=== PATIENT | female | born 1990 | race Caucasian/White ===

== ENCOUNTER 2022-12-12 10:30 | Outpatient (RCR) | payer OTHER, MEDICAID, SELFPAY ==
--- NOTE | 2022-11-07 17:00 | PT.OPPOC ---
Physical, Occupational & Speech Therapy At [facility] Current Diagnoses Gastro-esophageal reflux disease without esophagitis (11/07/22) Pelvic muscle wasting (11/07/22) Pelvic and perineal pain (11/07/22) Visit Care Team Role Provider Type TODD MartinezP- Family Provider Non-Staff Specialty: Nursing Address: [facility] [address], [place], [address] Email: Dinah Hawley DO Attending Provider Physician Primary Care Provider Referring Provider Specialty: Family Practice Address: [address] [place] [address], [place] [address], [place], [address] Email: [email or web address] Plan Of Care PT-OP-T Assessment and Plan Start: 11/07/22 10:32 Freq: Status: Active Protocol: Document 11/07/22 10:34 [facility] (Rec: 11/07/22 11:08 [facility] [id number][facility] Physical Therapy Assessment Rehab Potential Rehabilitation Potential Excellent Evaluation Complexity Number of Personal Factors/Comorbidities 0 Number of Body Systems Impaired 1-2 Clinical Presentation at Evaluation Stable Impairments Impairments Activity Tolerance,Functional Activities,Pain,Soft Tissue Mobility,Strength,Tone Goals 4 Impairment poor endurance of the pelvic floor Short Term Goal (STG) elida is able to sustain a pelvic floor contraction in supine x 10 seconds STG Duration 4 weeks Forward Air Controller/Air Officer Goal (LTG) elida is able to sustain a pelvic floor contraction in standing x 5 seconds LTG Duration 12 weeks 3 Impairment pelvic floor weakness with MMT of 2/5 for all lopez of the levator ani Short Term Goal (STG) Elida is able to improve pelvic floor strength by one muscle grade to 3/5 STG Duration 6 weeks Forward Air Controller/Air Officer Goal (LTG) Elida is able to improve pelvic floor strength to 4/5 or better and is able to relax her pelvic floor at rest on EMG biofeedback LTG Duration 12 weeks 2 Impairment tightness across the suprapubic fascia, transverse colon, and oblique musculature making diaphragmatic breathing difficult Short Term Goal (STG) pt is educated in proper breathing technique to expand her rib cage and abdominal wall with a inhale while relaxing the pelvic floor STG Duration 3 weeks Forward Air Controller/Air Officer Goal (LTG) Decreased tension and tightness of the abdominal wall and suprapubic fascia and Elida is able to tighten her pelvic floor without upper abdominal wall substitution LTG Duration 8 weeks 1 Impairment pt has history of pelvic pain and UTI's as well as urinary retention Short Term Goal (STG) pt is educated on relaxed awareness of the abdominal wall and voiding techniques to help improve her ability to fully empty her bladder STG Duration 4 weeks Penitentiary Goal (LTG) pt presents with improve ability to fully empty the bladder, decreased urgency and c/o UTI symptoms LTG Duration 12 weeks Assessment Summary Assessment Elida is a 32 year female referred to PT with c/o pelvic and perineal pain as well has history of UTI. Pt was scheduled to begin PT earlier however she was hospitalized Aug 21 this year after undergoing an endoscopy which caused a 2-3 cm esophageal perforation. She had to be flown to [facility] for stabilization and she ended up needing a J-tube for feeds. She reports she has had the jtube out for a month now. She did develop a venous thromboembolism related to her PICC line and is still on Lovenox for this. Elida notes her symptoms of UTI's have gotten better since this time. She wants to prevent future UTI's. Elida notes she holds chronic tension in her body and she is also dealing with motility issues. With manual examination of the abdominal wall pt has a band aide over the closing jtube placement. She presents with tightness of the abdominal fascia across the transverse colon and oblique musculature. elida has difficulty with diaphragmatic breathing and uses her upper chest to breath . There is restrictions across the suprapubic fascia and over the bladder. With pelvic floor examination Elida has weakness in all aspects of the levator ani. With palpation of the anterior left wall of the levator ani the uterus is felt with a small 1 degree prolapse and Elida notes this is a area of pain with intercourse. When attempting to contract her pelvic floor she pulls in from the obliques . She was given adductor assist exercise to assist with pelvic floor recruitment and this did help her to find her pelvic floor. She will be a good candidate for EMG biofeedback as well as NMES to help with pelvic floor dysfunction as well as retraining her upper abdominal wall to decrease downward tension on the pelvic floor. Physical Therapy Plan Frequency and Duration Frequency of Treatment 1x/Week Duration of treatment (weeks) 12 Plan of Care Start Date 11/07/22 Plan of Care End Date 01/30/23 Therapeutic Interventions Therapeutic Interventions Home Exercise Program,Manual Therapy,Neuromuscular Re- education,Patient/Caregiver Education,Self-Care/Home Management,Therapeutic Exercises Modalities Biofeedback Next Visit Focus/Plan Next Note Type Treatment Note Next Visit Plan begin stretches for pelvic pain next visit, work on diaphragmatic breathing in sidelying, work on MFR of the suprapubic fascia, trial quadruped position for abdominal relaxation Plan of Care Dates Plan of Care Start Date 11/07/22 Plan of Care End Date 01/30/23 Electronically Signed by: Yvrose Castro, PT 11/08/22 1015 If you are in agreement with this Plan of Care, please return a signed and dated copy. I have reviewed this Plan of Care and certify that the skilled therapy services above are required to meet the patient?s needs. Physician Signature Date Printed Name and Credentials Clinical Instructor Signature Printed Name and Credentials
--- NOTE | 2022-11-07 17:00 | PT.OIE ---
Current Diagnoses Gastro-esophageal reflux disease without esophagitis (11/07/22) Pelvic muscle wasting (11/07/22) Pelvic and perineal pain (11/07/22) Past Medical History (Last Updated 09/08/22 @ 12:56 by Dinah Hawley DO) Esophageal rupture GERD (gastroesophageal reflux disease) Jejunostomy tube present Pain in pelvis PMDD (premenstrual dysphoric disorder) Right ankle sprain Sore throat Temporomandibular joint disorder (TMJ) Thrombosis/embolism, venous Visit Care Team Role Provider Type Ashly Wynn, [facility] Family Provider Non-Staff Specialty: Nursing Address: [facility] [address], [place], [address] Email: Dinah Hawley DO Attending Provider Physician Primary Care Provider Referring Provider Specialty: Family Practice Address: [address] [place] [address], [address], [address] Email: [email or web address] Physical Therapy Initial Evaluation PT-OP-A Visit Information Start: 11/07/22 10:32 Freq: Status: Active Protocol: Document 11/07/22 10:34 [facility] (Rec: 11/07/22 11:08 [facility] [id number]) Out-Patient Physical Therapy Visit Information Visit Information Visit Type Initial Evaluation Visit Start Time 10:34 Visit Stop Time 11:15 Total Visit Minutes 41 Visit Number 1 Evaluation Information Evaluation Date 11/07/22 PT-OP-B Current Condition Start: 11/07/22 10:32 Freq: Status: Active Protocol: Document 11/07/22 10:34 [facility] (Rec: 11/07/22 11:08 [facility] [id number]) Current Condition History of Current Condition Onset Date 1 year ago Current Complaints c/o pelvic floor tightness, Chronic UTI's and feeling as if she has a UTI History of Current Condition year ago last spring she had a bad UTI and then symptoms started from there. pt was getting chronic UTI and UTI symptoms, she has having cramping and spasms, she holds a lot of tension in her body, she does have chronic motility issues SHe had a J tube in her stomach due to a perforated esophagus and she felt like she lost a lot of core strength. Her esophagus was perforated Aug 21. She has had her stent and J tube out for a month now. 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 In general she is tight everywhere, she experiences a lot of muscle pain and TMJ. She will be doing motility tests and she has to have mirilax to have a bowel movement every day. No c/o urinary leakage. Prior Treatments and Tests post void residual has shown bladder retention Treatment Goals Patient/Caregiver Goals treatment goals are to reduce tension and pain in the pelvic floor and reduce UTI symptoms PT-OP-F Manual Assessment Start: 11/07/22 10:32 Freq: Status: Active Protocol: Document 11/07/22 10:34 [facility] (Rec: 11/07/22 17:53 [facility] [id number]) Manual Assessments Soft Tissue Assessment Soft Tissue Mobility Assessment tightness of the suprapubic fascia and along the obliques, pt tends to hold herself in a guarded position of the obliques tightness of the fascia along the transverse colon Other Manual Assessments Other Manual Assessments difficulty with diaphragmatic breathing, pt tends to upper chest breath and it is difficult for her to relax her abdominal wall for diaphragmatic breathing and rib cage expansion PT-OP-I Pelvic Floor Start: 11/07/22 10:32 Freq: Status: Active Protocol: Document 11/07/22 10:34 [facility] (Rec: 11/07/22 17:52 [facility] [id number]) Pelvic Floor Assessment Pelvic Clock Pelvic Clock 12-3 Tenderness Pelvic Clock 3-6 Atrophy Pelvic Clock 6-9 Atrophy Pelvic Clock Other pt has decreased ability to contract her pelvic floor and tends to contract her upper abdominal wall when attempting to contract the pelvic floor, uterine prolapse felt more on the anterior left side and pt does report this region is a source of pain with intercourse for her. Contraction Ability Voluntary Contraction Weak Voluntary Relaxation Moderate Manual Muscle Testing Left 2 Manual Muscle Testing Right 2 Manual Muscle Testing Anterior 2 Manual Muscle Testing Posterior 2 Muscle Endurance (Seconds) 3 PT-OP-Q Treatments Start: 11/07/22 10:32 Freq: Status: Active Protocol: Document 11/07/22 10:34 [facility] (Rec: 11/07/22 17:50 [facility] [id number]) Therapeutic Exercises Supine Exercises diaphragmatic breathing Reps/Minutes inhale x 4 counts exhale x 6 seconds Comments pt tends to contract from her obliques ball squeeze with pelvic floor contraction Reps/Minutes x 10 reps PT-OP-T Assessment and Plan Start: 11/07/22 10:32 Freq: Status: Active Protocol: Document 11/07/22 10:34 [facility] (Rec: 11/07/22 11:08 [facility] [id number]) Physical Therapy Assessment Rehab Potential Rehabilitation Potential Excellent Evaluation Complexity Number of Personal Factors/Comorbidities 0 Number of Body Systems Impaired 1-2 Clinical Presentation at Evaluation Stable Impairments Impairments Activity Tolerance,Functional Activities,Pain,Soft Tissue Mobility,Strength,Tone Goals 4 Impairment poor endurance of the pelvic floor Short Term Goal (STG) elida is able to sustain a pelvic floor contraction in supine x 10 seconds STG Duration 4 weeks Mcc Goal (LTG) elida is able to sustain a pelvic floor contraction in standing x 5 seconds LTG Duration 12 weeks 3 Impairment pelvic floor weakness with MMT of 2/5 for all lopez of the levator ani Short Term Goal (STG) Elida is able to improve pelvic floor strength by one muscle grade to 3/5 STG Duration 6 weeks Mcc Goal (LTG) Elida is able to improve pelvic floor strength to 4/5 or better and is able to relax her pelvic floor at rest on EMG biofeedback LTG Duration 12 weeks 2 Impairment tightness across the suprapubic fascia, transverse colon, and oblique musculature making diaphragmatic breathing difficult Short Term Goal (STG) pt is educated in proper breathing technique to expand her rib cage and abdominal wall with a inhale while relaxing the pelvic floor STG Duration 3 weeks Mcc Goal (LTG) Decreased tension and tightness of the abdominal wall and suprapubic fascia and Elida is able to tighten her pelvic floor without upper abdominal wall substitution LTG Duration 8 weeks 1 Impairment pt has history of pelvic pain and UTI's as well as urinary retention Short Term Goal (STG) pt is educated on relaxed awareness of the abdominal wall and voiding techniques to help improve her ability to fully empty her bladder STG Duration 4 weeks Drawing Supervisor Goal (LTG) pt presents with improve ability to fully empty the bladder, decreased urgency and c/o UTI symptoms LTG Duration 12 weeks Assessment Summary Assessment Elida is a 32 year female referred to PT with c/o pelvic and perineal pain as well has history of UTI. Pt was scheduled to begin PT earlier however she was hospitalized Aug 21 this year after undergoing an edoscopy which caused a 2-3 cm esophageal perforation. She had to be flown to [facility] for stabilization and she unded up needing a J-tube for feeds. She reports she has had the jtube out for a month now. She did develop a venous thromboembolism related to her PICC line and is still on Lovenox for this. Elida notes her symptoms of UTI's have gotten better since this time. She wants to prevent future UTI's. Elida notes she holds chronic tension in her body and she is also dealing with motility issues. With manual examination of the abdominal wall pt has a band aide over the closing jtube placement. She presents with tightness of the abdominal fascia across the transverse colon and oblique musculature. elida has difficulty with diaphragmatic breathing and uses her upper chest to breath . There is restrictions across the suprapubic fascia and over the bladder. With pelvic floor examination Elida has weakness in all aspects of the levator ani. With palpation of the anterior left wall of the levator ani the uterus is felt with a small 1 degree propapse and Elida notes this is a area of pain with intercourse. When attempting to contract her pelvic floor she pulls in from the obliques . She was given adductor assist exercise to assist with pelvic floor recruitment and this did help her to find her pelvic floor. She will be a good candidate for EMG biofeedback as well as NMES to help with pelvic floor dysfunction as well as retraining her upper abdominal wall to decrease downward tension on the pelvic floor. Physical Therapy Plan Frequency and Duration Frequency of Treatment 1x/Week Duration of treatment (weeks) 12 Plan of Care Start Date 11/07/22 Plan of Care End Date 01/30/23 Therapeutic Interventions Therapeutic Interventions Home Exercise Program,Manual Therapy,Neuromuscular Re- education,Patient/Caregiver Education,Self-Care/Home Management,Therapeutic Exercises Modalities Biofeedback Next Visit Focus/Plan Next Note Type Treatment Note Next Visit Plan begin stretches for pelvic pain next visit, work on diaphragmatic breathing in sidelying, work on MFR of the suprapubic fascia, trial quadruped position for abdominal relaxation
--- NOTE | 2022-11-14 18:00 | PT.OTN ---
Current Diagnoses Gastro-esophageal reflux disease without esophagitis (11/14/22) Pelvic muscle wasting (11/14/22) Pelvic and perineal pain (11/14/22) Physical Therapy Treatment Note PT-OP-A Visit Information Start: 11/07/22 10:32 Freq: Status: Active Protocol: Document 11/14/22 10:30 [facility] (Rec: 11/14/22 17:58 [facility] [id number]) Out-Patient Physical Therapy Visit Information Visit Information Visit Type Treatment Note Visit Start Time 10:30 Visit Stop Time 11:15 Total Visit Minutes 45 Visit Number 2 Evaluation Information Evaluation Date 11/07/22 PT-OP-B Current Condition Start: 11/07/22 10:32 Freq: Status: Active Protocol: Document 11/07/22 10:34 [facility] (Rec: 11/07/22 11:08 [facility] [id number]) Current Condition History of Current Condition Onset Date 1 year ago Current Complaints c/o pelvic floor tightness, Chronic UTI's and feeling as if she has a UTI History of Current Condition year ago last spring she had a bad UTI and then symptoms started from there. pt was getting chronic UTI and UTI symptoms, she has having cramping and spasms, she holds a lot of tension in her body, she does have chronic motility issues SHe had a J tube in her stomach due to a perforated esophagus and she felt like she lost a lot of core strength. Her esophagus was perforated Aug 21. She has had her stent and J tube out for a month now. 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 In general she is tight everywhere, she experiences a lot of muscle pain and TMJ. She will be doing motility tests and she has to have mirilax to have a bowel movement every day. No c/o urinary leakage. Prior Treatments and Tests post void residual has shown bladder retention Treatment Goals Patient/Caregiver Goals treatment goals are to reduce tension and pain in the pelvic floor and reduce UTI symptoms PT-OP-C Subjective Start: 11/07/22 10:32 Freq: Status: Active Protocol: Document 11/14/22 10:30 [facility] (Rec: 11/14/22 11:24 [facility] [id number]) OP-PT Subjective Patient Comments Patient Comments pt notes she has been engaged in her abdomen at all times since she was in childhood. SHe is on her period this week so wishes to hold off on EMG biofeedback. She does feel motility issues a little better this week PT-OP-F Manual Assessment Start: 11/07/22 10:32 Freq: Status: Active Protocol: Document 11/07/22 10:34 [facility] (Rec: 11/07/22 17:53 [facility] [id number]) Manual Assessments Soft Tissue Assessment Soft Tissue Mobility Assessment tightness of the suprapubic fascia and along the obliques, pt tends to hold herself in a guarded position of the obliques tightness of the fascia along the transverse colon Other Manual Assessments Other Manual Assessments difficulty with diaphragmatic breathing, pt tends to upper chest breath and it is difficult for her to relax her abdominal wall for diaphragmatic breathing and rib cage expansion PT-OP-I Pelvic Floor Start: 11/07/22 10:32 Freq: Status: Active Protocol: Document 11/07/22 10:34 [facility] (Rec: 11/07/22 17:52 [facility] [id number]) Pelvic Floor Assessment Pelvic Clock Pelvic Clock 12-3 Tenderness Pelvic Clock 3-6 Atrophy Pelvic Clock 6-9 Atrophy Pelvic Clock Other pt has decreased ability to contract her pelvic floor and tends to contract her upper abdominal wall when attempting to contract the pelvic floor, uterine prolapse felt more on the anterior left side and pt does report this region is a source of pain with intercourse for her. Contraction Ability Voluntary Contraction Weak Voluntary Relaxation Moderate Manual Muscle Testing Left 2 Manual Muscle Testing Right 2 Manual Muscle Testing Anterior 2 Manual Muscle Testing Posterior 2 Muscle Endurance (Seconds) 3 PT-OP-Q Treatments Start: 11/07/22 10:32 Freq: Status: Active Protocol: Document 11/14/22 10:30 [facility] (Rec: 11/14/22 17:58 [facility] [id number]) Therapeutic Exercises Supine Exercises diaphragmatic breathing Reps/Minutes inhale x 4 counts exhale x 6 seconds Comments pt tends to contract from her obliques ball squeeze with pelvic floor contraction Reps/Minutes x 10 reps Comments with cueing to avoid use of upper abdominals Other Exercises cat cow Reps/Minutes x 10 Comments cues for thoracic segmental mobility quadruped TA facilitation Reps/Minutes x 10 Manual Therapy Treatment Soft Tissue Mobilization diaphragmatic release Mobilization Type Myofascial Release Comments MFR over the region of the diaphragm MFR over the ascending, transverse, and descending colon Comments pt has restrictions on the right side of colon from ascending to transverse colon Self-Care/Home Management Treatment Education Patient Education Home Exercise Program Other Education pt was educated on ILU self massage for the colon PT-OP-T Assessment and Plan Start: 11/07/22 10:32 Freq: Status: Active Protocol: Document 11/14/22 10:30 [facility] (Rec: 11/14/22 17:58 [facility] [id number]) Physical Therapy Assessment Assessment Summary Assessment pt was on her menstrual cycle today so she did not wish to start EMG biofeedback. I worked with her on thoracic mobility and she is very tight in her thoracic spine, with MFR her fascia over the ascending colon and transverse colon is also very tight and restricted. She did much better today with pelvic floor contraction without upper abdominal engagement Physical Therapy Plan Frequency and Duration Frequency of Treatment 1x/Week Duration of treatment (weeks) 12 Plan of Care Start Date 11/07/22 Plan of Care End Date 01/30/23 Next Visit Focus/Plan Next Note Type Treatment Note Next Visit Plan EMG biofeedback next visit for pelvic floor neurore-ed
--- NOTE | 2022-11-21 12:42 | PT.OTN ---
Current Diagnoses Gastro-esophageal reflux disease without esophagitis (11/21/22) Pelvic muscle wasting (11/21/22) Pelvic and perineal pain (11/21/22) Physical Therapy Treatment Note PT-OP-A Visit Information Start: 11/07/22 10:32 Freq: Status: Active Protocol: Document 11/21/22 10:32 [facility] (Rec: 11/21/22 11:27 [facility] [id number]) Out-Patient Physical Therapy Visit Information Visit Information Visit Type Treatment Note Visit Start Time 10:30 Visit Stop Time 11:15 Total Visit Minutes 45 Visit Number 3 Evaluation Information Evaluation Date 11/07/22 PT-OP-B Current Condition Start: 11/07/22 10:32 Freq: Status: Active Protocol: Document 11/07/22 10:34 [facility] (Rec: 11/07/22 11:08 [facility] [id number]) Current Condition History of Current Condition Onset Date 1 year ago Current Complaints c/o pelvic floor tightness, Chronic UTI's and feeling as if she has a UTI History of Current Condition year ago last spring she had a bad UTI and then symptoms started from there. pt was getting chronic UTI and UTI symptoms, she has having cramping and spasms, she holds a lot of tension in her body, she does have chronic motility issues SHe had a J tube in her stomach due to a perforated esophagus and she felt like she lost a lot of core strength. Her esophagus was perforated Aug 21. She has had her stent and J tube out for a month now. 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 In general she is tight everywhere, she experiences a lot of muscle pain and TMJ. She will be doing motility tests and she has to have mirilax to have a bowel movement every day. No c/o urinary leakage. Prior Treatments and Tests post void residual has shown bladder retention Treatment Goals Patient/Caregiver Goals treatment goals are to reduce tension and pain in the pelvic floor and reduce UTI symptoms PT-OP-C Subjective Start: 11/07/22 10:32 Freq: Status: Active Protocol: Document 11/21/22 10:32 [facility] (Rec: 11/21/22 11:10 [facility] [id number]) OP-PT Subjective Patient Comments Patient Comments pt notes by the evening she feels more bladder pressure in the evening and more urgency, she does better with intercourse in the morning or early afternoon. PT-OP-F Manual Assessment Start: 11/07/22 10:32 Freq: Status: Active Protocol: Document 11/07/22 10:34 [facility] (Rec: 11/07/22 17:53 [facility] [id number]) Manual Assessments Soft Tissue Assessment Soft Tissue Mobility Assessment tightness of the suprapubic fascia and along the obliques, pt tends to hold herself in a guarded position of the obliques tightness of the fascia along the transverse colon Other Manual Assessments Other Manual Assessments difficulty with diaphragmatic breathing, pt tends to upper chest breath and it is difficult for her to relax her abdominal wall for diaphragmatic breathing and rib cage expansion PT-OP-I Pelvic Floor Start: 11/07/22 10:32 Freq: Status: Active Protocol: Document 11/07/22 10:34 [facility] (Rec: 11/07/22 17:52 [facility] [id number]) Pelvic Floor Assessment Pelvic Clock Pelvic Clock 12-3 Tenderness Pelvic Clock 3-6 Atrophy Pelvic Clock 6-9 Atrophy Pelvic Clock Other pt has decreased ability to contract her pelvic floor and tends to contract her upper abdominal wall when attempting to contract the pelvic floor, uterine prolapse felt more on the anterior left side and pt does report this region is a source of pain with intercourse for her. Contraction Ability Voluntary Contraction Weak Voluntary Relaxation Moderate Manual Muscle Testing Left 2 Manual Muscle Testing Right 2 Manual Muscle Testing Anterior 2 Manual Muscle Testing Posterior 2 Muscle Endurance (Seconds) 3 PT-OP-Q Treatments Start: 11/07/22 10:32 Freq: Status: Active Protocol: Document 11/21/22 10:32 [facility] (Rec: 11/21/22 11:10 [facility] [id number]) Therapeutic Exercises Supine Exercises pelvis elevated with bolster Equipment Used bolster Comments pt is educated in pelvic floor decompression 10-15 min per day diaphragmatic breathing Reps/Minutes inhale x 4 counts exhale x 6 seconds Comments pt doing better relaxing her abdominal wall ball squeeze with pelvic floor contraction Reps/Minutes x 10 reps holding 5 seconds Comments 7.5 withmax of 12.2 resting tone at 5 uv Sidelying Exercises sidelying pelvic floor contractions Reps/Minutes pt was educated in sidelying pelvic floor contractions Comments as another option for home Other Exercises cobra stretch Reps/Minutes hold 1-2 min kelly pose Reps/Minutes hold 1-2 min cat cow Reps/Minutes x 10 Comments pt doing better with segmental mobility Neuro Re-Education Treatment Other Activities EMG biofeedback Details EMG biofeedback for relaxed awareness and for facilitation of the PF Comments began EMG biofeedback for pelvic floor awareness, resting tone was elevated today to start treatment at 5. 0 uv. Pts legs were elevated over a bolster and time was spent working on relaxed awareness of the levator ani. Self-Care/Home Management Treatment Education Patient Education Pain Management Other Education pt is educated in elevation of her pelvis with a wedge or pillows for pelvic floor decompression later in the afternoon evening, she was also shown the legs up the wall exercise PT-OP-T Assessment and Plan Start: 11/07/22 10:32 Freq: Status: Active Protocol: Document 11/21/22 10:32 [facility] (Rec: 11/21/22 12:42 [facility] [id number]) Physical Therapy Assessment Goals 4 Impairment poor endurance of the pelvic floor Short Term Goal (STG) elida is able to sustain a pelvic floor contraction in supine x 10 seconds STG Duration 4 weeks Half-Way Goal (LTG) elida is able to sustain a pelvic floor contraction in standing x 5 seconds LTG Duration 12 weeks 3 Impairment pelvic floor weakness with MMT of 2/5 for all lopez of the levator ani Short Term Goal (STG) Elida is able to improve pelvic floor strength by one muscle grade to 3/5 STG Duration 6 weeks Half-Way Goal (LTG) Elida is able to improve pelvic floor strength to 4/5 or better and is able to relax her pelvic floor at rest on EMG biofeedback LTG Duration 12 weeks 2 Impairment tightness across the suprapubic fascia, transverse colon, and oblique musculature making diaphragmatic breathing difficult Short Term Goal (STG) pt is educated in proper breathing technique to expand her rib cage and abdominal wall with a inhale while relaxing the pelvic floor STG Duration 3 weeks [employer] Goal (LTG) Decreased tension and tightness of the abdominal wall and suprapubic fascia and Elida is able to tighten her pelvic floor without upper abdominal wall substitution LTG Duration 8 weeks 1 Impairment pt has history of pelvic pain and UTI's as well as urinary retention Short Term Goal (STG) pt is educated on relaxed awareness of the abdominal wall and voiding techniques to help improve her ability to fully empty her bladder STG Duration 4 weeks [employer] Goal (LTG) pt presents with improve ability to fully empty the bladder, decreased urgency and c/o UTI symptoms LTG Duration 12 weeks Assessment Summary Assessment Elida was educated in pelvic decompression with the wedge today as she had mentioned more urgency and bladder pressure at the end of the day . She was started on EMG biofeedback today and time was spent on both relaxed awareness of her pelvic floor as well as facilitation of her pelvic floor. We tried sidelying and she did better with pelvic floor recruitment in this position with a pillow between her knees Physical Therapy Plan Frequency and Duration Frequency of Treatment 1x/Week Duration of treatment (weeks) 12 Plan of Care Start Date 11/07/22 Plan of Care End Date 01/30/23 Therapeutic Interventions Therapeutic Interventions Home Exercise Program,Manual Therapy,Neuromuscular Re- education,Patient/Caregiver Education,Self-Care/Home Management,Therapeutic Exercises Modalities Biofeedback Next Visit Focus/Plan Next Note Type Treatment Note Next Visit Plan review pelvic decompression and pelvic floor neuro re-ed on EMG biofeedback, add in happy baby for pelvic floor stretching
--- NOTE | 2022-11-28 11:25 | PT.OTN ---
Current Diagnoses Gastro-esophageal reflux disease without esophagitis (11/28/22) Pelvic muscle wasting (11/28/22) Pelvic and perineal pain (11/28/22) Physical Therapy Treatment Note PT-OP-A Visit Information Start: 11/07/22 10:32 Freq: Status: Active Protocol: Document 11/28/22 10:30 [facility] (Rec: 11/28/22 11:25 [facility] [id number]) Out-Patient Physical Therapy Visit Information Visit Information Visit Type Treatment Note Visit Start Time 10:30 Visit Stop Time 11:15 Total Visit Minutes 45 Visit Number 4 PT-OP-B Current Condition Start: 11/07/22 10:32 Freq: Status: Active Protocol: Document 11/07/22 10:34 [facility] (Rec: 11/07/22 11:08 [facility] [id number]) Current Condition History of Current Condition Onset Date 1 year ago Current Complaints c/o pelvic floor tightness, Chronic UTI's and feeling as if she has a UTI History of Current Condition year ago last spring she had a bad UTI and then symptoms started from there. pt was getting chronic UTI and UTI symptoms, she has having cramping and spasms, she holds a lot of tension in her body, she does have chronic motility issues SHe had a J tube in her stomach due to a perforated esophagus and she felt like she lost a lot of core strength. Her esophagus was perforated Aug 21. She has had her stent and J tube out for a month now. 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 In general she is tight everywhere, she experiences a lot of muscle pain and TMJ. She will be doing motility tests and she has to have mirilax to have a bowel movement every day. No c/o urinary leakage. Prior Treatments and Tests post void residual has shown bladder retention Treatment Goals Patient/Caregiver Goals treatment goals are to reduce tension and pain in the pelvic floor and reduce UTI symptoms PT-OP-C Subjective Start: 11/07/22 10:32 Freq: Status: Active Protocol: Document 11/28/22 10:30 [facility] (Rec: 11/28/22 11:25 [facility] [id number]) OP-PT Subjective Patient Comments Patient Comments pt notes she was better with her exercises, she did try the legs up the wall exercise and felt her heart racing urgency is worst in the evening and it comes and goes, pt is feeling that she is eable to eat without pain and is having a daily bowel movement now, using mirilax. PT-OP-F Manual Assessment Start: 11/07/22 10:32 Freq: Status: Active Protocol: Document 11/07/22 10:34 [facility] (Rec: 11/07/22 17:53 [facility] [id number]) Manual Assessments Soft Tissue Assessment Soft Tissue Mobility Assessment tightness of the suprapubic fascia and along the obliques, pt tends to hold herself in a guarded position of the obliques tightness of the fascia along the transverse colon Other Manual Assessments Other Manual Assessments difficulty with diaphragmatic breathing, pt tends to upper chest breath and it is difficult for her to relax her abdominal wall for diaphragmatic breathing and rib cage expansion PT-OP-I Pelvic Floor Start: 11/07/22 10:32 Freq: Status: Active Protocol: Document 11/07/22 10:34 [facility] (Rec: 11/07/22 17:52 [facility] [id number]) Pelvic Floor Assessment Pelvic Clock Pelvic Clock 12-3 Tenderness Pelvic Clock 3-6 Atrophy Pelvic Clock 6-9 Atrophy Pelvic Clock Other pt has decreased ability to contract her pelvic floor and tends to contract her upper abdominal wall when attempting to contract the pelvic floor, uterine prolapse felt more on the anterior left side and pt does report this region is a source of pain with intercourse for her. Contraction Ability Voluntary Contraction Weak Voluntary Relaxation Moderate Manual Muscle Testing Left 2 Manual Muscle Testing Right 2 Manual Muscle Testing Anterior 2 Manual Muscle Testing Posterior 2 Muscle Endurance (Seconds) 3 PT-OP-Q Treatments Start: 11/07/22 10:32 Freq: Status: Active Protocol: Document 11/28/22 10:30 [facility] (Rec: 11/28/22 11:25 [facility] [id number]) Therapeutic Exercises Supine Exercises quick pelvic floor contractions Reps/Minutes x 10 reps pelvis elevated with bolster Supine Exercise Name HEP diaphragmatic breathing Comments pt able to relax to baseline ball squeeze with pelvic floor contraction Reps/Minutes x 10 10 sec hold Comments 8.2 with max of 18 Other Exercises happy baby Reps/Minutes hold 1-2 min Manual Therapy Treatment Soft Tissue Mobilization diaphragmatic release Mobilization Type Myofascial Release Comments MFR over the region of the diaphragm MFR over the ascending, transverse, and descending colon Comments pt has restrictions on the right side of colon from ascending to transverse colon Neuro Re-Education Treatment Other Activities EMG biofeedback Comments pt was able to relax Self-Care/Home Management Treatment Education Patient Education Home Exercise Program Other Education pt was educated on bladder retraining and urge deference technique PT-OP-T Assessment and Plan Start: 11/07/22 10:32 Freq: Status: Active Protocol: Document 11/28/22 10:30 [facility] (Rec: 11/28/22 11:25 [facility] [id number]) Physical Therapy Assessment Assessment Summary Assessment Yue was educated on bladder retraining today and in sidelying she was able to facilitate her pelvic floor better to add in quick contractions. She will try her legs in 90/90 with pelvis elevated and will also retry the wall but she did notice a fast heart rate after trying legs up the wall last week. I discussed NMES and Yue will think about it this week and revisit next week Physical Therapy Plan Frequency and Duration Frequency of Treatment 1x/Week Duration of treatment (weeks) 12 Plan of Care Start Date 11/07/22 Plan of Care End Date 01/30/23 Therapeutic Interventions Therapeutic Interventions Home Exercise Program,Manual Therapy,Neuromuscular Re- education,Patient/Caregiver Education,Self-Care/Home Management,Therapeutic Exercises Modalities Biofeedback
--- NOTE | 2022-12-05 17:34 | PT.OTN ---
Current Diagnoses Gastro-esophageal reflux disease without esophagitis (12/05/22) Pelvic muscle wasting (12/05/22) Pelvic and perineal pain (12/05/22) Physical Therapy Treatment Note PT-OP-A Visit Information Start: 11/07/22 10:32 Freq: Status: Active Protocol: Document 12/05/22 10:38 [facility] (Rec: 12/05/22 11:22 [facility] [id number]) Out-Patient Physical Therapy Visit Information Visit Information Visit Type Treatment Note Visit Start Time 10:30 Visit Stop Time 11:15 Total Visit Minutes 45 Visit Number 5 PT-OP-B Current Condition Start: 11/07/22 10:32 Freq: Status: Active Protocol: Document 11/07/22 10:34 [facility] (Rec: 11/07/22 11:08 [facility] [id number]) Current Condition History of Current Condition Onset Date 1 year ago Current Complaints c/o pelvic floor tightness, Chronic UTI's and feeling as if she has a UTI History of Current Condition year ago last spring she had a bad UTI and then symptoms started from there. pt was getting chronic UTI and UTI symptoms, she has having cramping and spasms, she holds a lot of tension in her body, she does have chronic motility issues SHe had a J tube in her stomach due to a perforated esophagus and she felt like she lost a lot of core strength. Her esophagus was perforated Aug 21. She has had her stent and J tube out for a month now. 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 In general she is tight everywhere, she experiences a lot of muscle pain and TMJ. She will be doing motility tests and she has to have mirilax to have a bowel movement every day. No c/o urinary leakage. Prior Treatments and Tests post void residual has shown bladder retention Treatment Goals Patient/Caregiver Goals treatment goals are to reduce tension and pain in the pelvic floor and reduce UTI symptoms PT-OP-C Subjective Start: 11/07/22 10:32 Freq: Status: Active Protocol: Document 12/05/22 10:38 [facility] (Rec: 12/05/22 11:22 [facility] [id number]) OP-PT Subjective Patient Comments Patient Comments pt notes she is in the middle of her cycle so feeling her joints achey In the evenings there is some pelvic floor fatigue in the evenings and she has been tryng the urge deference technique PT-OP-F Manual Assessment Start: 11/07/22 10:32 Freq: Status: Active Protocol: Document 11/07/22 10:34 [facility] (Rec: 11/07/22 17:53 [facility] [id number]) Manual Assessments Soft Tissue Assessment Soft Tissue Mobility Assessment tightness of the suprapubic fascia and along the obliques, pt tends to hold herself in a guarded position of the obliques tightness of the fascia along the transverse colon Other Manual Assessments Other Manual Assessments difficulty with diaphragmatic breathing, pt tends to upper chest breath and it is difficult for her to relax her abdominal wall for diaphragmatic breathing and rib cage expansion PT-OP-I Pelvic Floor Start: 11/07/22 10:32 Freq: Status: Active Protocol: Document 11/07/22 10:34 [facility] (Rec: 11/07/22 17:52 [facility] [id number]) Pelvic Floor Assessment Pelvic Clock Pelvic Clock 12-3 Tenderness Pelvic Clock 3-6 Atrophy Pelvic Clock 6-9 Atrophy Pelvic Clock Other pt has decreased ability to contract her pelvic floor and tends to contract her upper abdominal wall when attempting to contract the pelvic floor, uterine prolapse felt more on the anterior left side and pt does report this region is a source of pain with intercourse for her. Contraction Ability Voluntary Contraction Weak Voluntary Relaxation Moderate Manual Muscle Testing Left 2 Manual Muscle Testing Right 2 Manual Muscle Testing Anterior 2 Manual Muscle Testing Posterior 2 Muscle Endurance (Seconds) 3 PT-OP-Q Treatments Start: 11/07/22 10:32 Freq: Status: Active Protocol: Document 12/05/22 10:38 [facility] (Rec: 12/05/22 11:22 [facility] [id number]) Therapeutic Exercises Supine Exercises diaphragmatic breathing Comments pt able to relax to baseline Other Exercises thoracic foam roll horizontal across the t spine Reps/Minutes x 2 min Comments with soft roll. happy baby Reps/Minutes hold 1-2 min kelly pose Reps/Minutes hold 1-2 min Manual Therapy Treatment Soft Tissue Mobilization diaphragmatic release Mobilization Type Myofascial Release Comments MFR over the region of the diaphragm MFR over the ascending, transverse, and descending colon Comments pt has restrictions on the right side of colon from ascending to transverse colon PT-OP-T Assessment and Plan Start: 11/07/22 10:32 Freq: Status: Active Protocol: Document 12/05/22 10:38 [facility] (Rec: 12/05/22 11:22 [facility] [id number]) Physical Therapy Assessment Goals 4 Impairment poor endurance of the pelvic floor Short Term Goal (STG) elida is able to sustain a pelvic floor contraction in supine x 10 seconds STG Duration 4 weeks Shelter Goal (LTG) elida is able to sustain a pelvic floor contraction in standing x 5 seconds LTG Duration 12 weeks 3 Impairment pelvic floor weakness with MMT of 2/5 for all lopez of the levator ani Short Term Goal (STG) Elida is able to improve pelvic floor strength by one muscle grade to 3/5 STG Duration 6 weeks Home Health Occupational Therapist Goal (LTG) Elida is able to improve pelvic floor strength to 4/5 or better and is able to relax her pelvic floor at rest on EMG biofeedback LTG Duration 12 weeks 2 Impairment tightness across the suprapubic fascia, transverse colon, and oblique musculature making diaphragmatic breathing difficult Short Term Goal (STG) pt is educated in proper breathing technique to expand her rib cage and abdominal wall with a inhale while relaxing the pelvic floor STG Duration 3 weeks Shelter Goal (LTG) Decreased tension and tightness of the abdominal wall and suprapubic fascia and Elida is able to tighten her pelvic floor without upper abdominal wall substitution LTG Duration 8 weeks 1 Impairment pt has history of pelvic pain and UTI's as well as urinary retention Short Term Goal (STG) pt is educated on relaxed awareness of the abdominal wall and voiding techniques to help improve her ability to fully empty her bladder STG Duration 4 weeks Shelter Goal (LTG) pt presents with improve ability to fully empty the bladder, decreased urgency and c/o UTI symptoms LTG Duration 12 weeks Assessment Summary Assessment added in thoracic mobilizations for the T spine with foam roll and Elida could feel a really good stretch in her diaphragm region with this Physical Therapy Plan Frequency and Duration Frequency of Treatment 1x/Week Duration of treatment (weeks) 12 Plan of Care Start Date 11/07/22 Plan of Care End Date 01/30/23 Therapeutic Interventions Therapeutic Interventions Home Exercise Program,Manual Therapy,Neuromuscular Re- education,Patient/Caregiver Education,Self-Care/Home Management,Therapeutic Exercises Modalities Biofeedback Next Visit Focus/Plan Next Note Type Treatment Note Next Visit Plan review pelvic decompression and pelvic floor neuro re-ed on EMG biofeedback, continue with thoracic mobility exercises
--- NOTE | 2022-12-12 16:50 | PT.OTN ---
Current Diagnoses Gastro-esophageal reflux disease without esophagitis (12/12/22) Pelvic muscle wasting (12/12/22) Pelvic and perineal pain (12/12/22) Physical Therapy Treatment Note PT-OP-A Visit Information Start: 11/07/22 10:32 Freq: Status: Active Protocol: Document 12/12/22 10:24 [facility] (Rec: 12/12/22 11:32 [facility] [id number]) Out-Patient Physical Therapy Visit Information Visit Information Visit Type Treatment Note Visit Start Time 10:30 Visit Stop Time 11:15 Total Visit Minutes 45 Visit Number 6 PT-OP-B Current Condition Start: 11/07/22 10:32 Freq: Status: Active Protocol: Document 11/07/22 10:34 [facility] (Rec: 11/07/22 11:08 [facility] [id number]) Current Condition History of Current Condition Onset Date 1 year ago Current Complaints c/o pelvic floor tightness, Chronic UTI's and feeling as if she has a UTI History of Current Condition year ago last spring she had a bad UTI and then symptoms started from there. pt was getting chronic UTI and UTI symptoms, she has having cramping and spasms, she holds a lot of tension in her body, she does have chronic motility issues SHe had a J tube in her stomach due to a perforated esophagus and she felt like she lost a lot of core strength. Her esophagus was perforated Aug 21. She has had her stent and J tube out for a month now. 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 In general she is tight everywhere, she experiences a lot of muscle pain and TMJ. She will be doing motility tests and she has to have mirilax to have a bowel movement every day. No c/o urinary leakage. Prior Treatments and Tests post void residual has shown bladder retention Treatment Goals Patient/Caregiver Goals treatment goals are to reduce tension and pain in the pelvic floor and reduce UTI symptoms PT-OP-C Subjective Start: 11/07/22 10:32 Freq: Status: Active Protocol: Document 12/12/22 10:24 [facility] (Rec: 12/12/22 11:32 [facility] [id number]) OP-PT Subjective Patient Comments Patient Comments pt notes she had a increased awareness after last visit, she has had a couple of time where she felt pain where her chest tube was at. She wonders about scar tissue in this area and would like to see if we can work on this area today PT-OP-F Manual Assessment Start: 11/07/22 10:32 Freq: Status: Active Protocol: Document 11/07/22 10:34 [facility] (Rec: 11/07/22 17:53 [facility] [id number]) Manual Assessments Soft Tissue Assessment Soft Tissue Mobility Assessment tightness of the suprapubic fascia and along the obliques, pt tends to hold herself in a guarded position of the obliques tightness of the fascia along the transverse colon Other Manual Assessments Other Manual Assessments difficulty with diaphragmatic breathing, pt tends to upper chest breath and it is difficult for her to relax her abdominal wall for diaphragmatic breathing and rib cage expansion PT-OP-I Pelvic Floor Start: 11/07/22 10:32 Freq: Status: Active Protocol: Document 11/07/22 10:34 [facility] (Rec: 11/07/22 17:52 [facility] [id number]) Pelvic Floor Assessment Pelvic Clock Pelvic Clock 12-3 Tenderness Pelvic Clock 3-6 Atrophy Pelvic Clock 6-9 Atrophy Pelvic Clock Other pt has decreased ability to contract her pelvic floor and tends to contract her upper abdominal wall when attempting to contract the pelvic floor, uterine prolapse felt more on the anterior left side and pt does report this region is a source of pain with intercourse for her. Contraction Ability Voluntary Contraction Weak Voluntary Relaxation Moderate Manual Muscle Testing Left 2 Manual Muscle Testing Right 2 Manual Muscle Testing Anterior 2 Manual Muscle Testing Posterior 2 Muscle Endurance (Seconds) 3 PT-OP-Q Treatments Start: 11/07/22 10:32 Freq: Status: Active Protocol: Document 12/12/22 10:24 [facility] (Rec: 12/12/22 11:32 [facility] [id number]) Therapeutic Exercises Sidelying Exercises reach and pull with the left arm to improve protraction/retraction Reps/Minutes x 10 reps Other Exercises standing shoulder extension Reps/Minutes 3 x 10 reps level 1 TB standing rows Reps/Minutes 3 x 10 reps level 1 tb serratus anterior wall press Reps/Minutes x 20 Manual Therapy Treatment Soft Tissue Mobilization QL MFR and SA MFR on the left side Mobilization Type Myofascial Release Intensity/Depth Superficial Body Position Sidelying Comments worked over the chest toub incisions on the left Joint Mobilizations sidelying scapular mobilizations Joint scapular thoracic Direction protraction/retraction, upward rotation Body Position Sidelying Comments worked on the right scapular thoracic mobility, pt is tight in the serratus anterior and restricted with rib cage mobility PT-OP-T Assessment and Plan Start: 11/07/22 10:32 Freq: Status: Active Protocol: Document 12/12/22 10:24 [facility] (Rec: 12/12/22 11:32 [facility] [id number]) Physical Therapy Assessment Goals 4 Impairment poor endurance of the pelvic floor Short Term Goal (STG) elida is able to sustain a pelvic floor contraction in supine x 10 seconds STG Duration 4 weeks [facility] Goal (LTG) elida is able to sustain a pelvic floor contraction in standing x 5 seconds LTG Duration 12 weeks 3 Impairment pelvic floor weakness with MMT of 2/5 for all lopez of the levator ani Short Term Goal (STG) Elida is able to improve pelvic floor strength by one muscle grade to 3/5 STG Duration 6 weeks [facility] Goal (LTG) Elida is able to improve pelvic floor strength to 4/5 or better and is able to relax her pelvic floor at rest on EMG biofeedback LTG Duration 12 weeks 2 Impairment tightness across the suprapubic fascia, transverse colon, and oblique musculature making diaphragmatic breathing difficult Short Term Goal (STG) pt is educated in proper breathing technique to expand her rib cage and abdominal wall with a inhale while relaxing the pelvic floor STG Duration 3 weeks [facility] [employer] Goal (LTG) Decreased tension and tightness of the abdominal wall and suprapubic fascia and Elida is able to tighten her pelvic floor without upper abdominal wall substitution LTG Duration 8 weeks 1 Impairment pt has history of pelvic pain and UTI's as well as urinary retention Short Term Goal (STG) pt is educated on relaxed awareness of the abdominal wall and voiding techniques to help improve her ability to fully empty her bladder STG Duration 4 weeks [facility] Goal (LTG) pt presents with improve ability to fully empty the bladder, decreased urgency and c/o UTI symptoms LTG Duration 12 weeks Assessment Summary Assessment I started working on Elida's serratus anterior today on the left side as well as scar tissue work where her chest tube was placed. She presents with limited rib cage mobilty and she notes that with her autism as a child she often held herself very tight in a forward position. We worked on starting with some exercises to help thoracic mobility. Her digestion is improving and she is not experiencing the pelvic floor issues she was having. Physical Therapy Plan Frequency and Duration Frequency of Treatment 1x/Week Duration of treatment (weeks) 12 Plan of Care Start Date 11/07/22 Plan of Care End Date 01/30/23 Therapeutic Interventions Therapeutic Interventions Home Exercise Program,Manual Therapy,Neuromuscular Re- education,Patient/Caregiver Education,Self-Care/Home Management,Therapeutic Exercises Modalities Biofeedback Next Visit Focus/Plan Next Note Type Treatment Note Next Visit Plan review pelvic decompression and pelvic floor neuro re-ed on EMG biofeedback, continue with thoracic mobility exercises
--- NOTE | 2023-02-27 09:09 | PT.OPDS ---
Current Diagnoses Gastro-esophageal reflux disease without esophagitis (12/12/22) Pelvic muscle wasting (12/12/22) Pelvic and perineal pain (12/12/22) Visit Care Team Role [facility] Non-Staff Specialty: Nursing Address: [facility] [address], [place], [address] Email: Dinah Hawley DO Attending Provider Physician Primary Care Provider Referring Provider Specialty: Family Practice Address: [address] [place] [address], [address], [place], [address] Email: [email or web address] Visit Number Visit Number 6 Discharge Summary PT-OP-B Current Condition Start: 11/07/22 10:32 Freq: Status: Active Protocol: Document 11/07/22 10:34 [facility] (Rec: 11/07/22 11:08 [facility] [id number]) Current Condition History of Current Condition Onset Date 1 year ago Current Complaints c/o pelvic floor tightness, Chronic UTI's and feeling as if she has a UTI History of Current Condition year ago last spring she had a bad UTI and then symptoms started from there. pt was getting chronic UTI and UTI symptoms, she has having cramping and spasms, she holds a lot of tension in her body, she does have chronic motility issues SHe had a J tube in her stomach due to a perforated esophagus and she felt like she lost a lot of core strength. Her esophagus was perforated Aug 21. She has had her stent and J tube out for a month now. 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 In general she is tight everywhere, she experiences a lot of muscle pain and TMJ. She will be doing motility tests and she has to have mirilax to have a bowel movement every day. No c/o urinary leakage. Prior Treatments and Tests post void residual has shown bladder retention Treatment Goals Patient/Caregiver Goals treatment goals are to reduce tension and pain in the pelvic floor and reduce UTI symptoms PT-OP-C Subjective Start: 11/07/22 10:32 Freq: Status: Active Protocol: Document 12/12/22 10:24 [facility] (Rec: 12/12/22 11:32 [facility] [id number]) OP-PT Subjective Patient Comments Patient Comments pt notes she had a increased awareness after last visit, she has had a couple of time where she felt pain where her chest tube was at. She wonders about scar tissue in this area and would like to see if we can work on this area today PT-OP-F Manual Assessment Start: 11/07/22 10:32 Freq: Status: Active Protocol: Document 11/07/22 10:34 [facility] (Rec: 11/07/22 17:53 [facility] [id number]) Manual Assessments Soft Tissue Assessment Soft Tissue Mobility Assessment tightness of the suprapubic fascia and along the obliques, pt tends to hold herself in a guarded position of the obliques tightness of the fascia along the transverse colon Other Manual Assessments Other Manual Assessments difficulty with diaphragmatic breathing, pt tends to upper chest breath and it is difficult for her to relax her abdominal wall for diaphragmatic breathing and rib cage expansion PT-OP-I Pelvic Floor Start: 11/07/22 10:32 Freq: Status: Active Protocol: Document 11/07/22 10:34 [facility] (Rec: 11/07/22 17:52 [facility] [id number]) Pelvic Floor Assessment Pelvic Clock Pelvic Clock 12-3 Tenderness Pelvic Clock 3-6 Atrophy Pelvic Clock 6-9 Atrophy Pelvic Clock Other pt has decreased ability to contract her pelvic floor and tends to contract her upper abdominal wall when attempting to contract the pelvic floor, uterine prolapse felt more on the anterior left side and pt does report this region is a source of pain with intercourse for her. Contraction Ability Voluntary Contraction Weak Voluntary Relaxation Moderate Manual Muscle Testing Left 2 Manual Muscle Testing Right 2 Manual Muscle Testing Anterior 2 Manual Muscle Testing Posterior 2 Muscle Endurance (Seconds) 3 PT-OP-T Assessment and Plan Start: 11/07/22 10:32 Freq: Status: Active Protocol: Document 02/27/23 09:07 [facility] (Rec: 02/27/23 09:09 [facility] [id number]) Physical Therapy Assessment Goals 4 Impairment poor endurance of the pelvic floor Short Term Goal (STG) elida is able to sustain a pelvic floor contraction in supine x 10 seconds excellent progress STG Duration 4 weeks [facility] Goal (LTG) elida is able to sustain a pelvic floor contraction in standing x 5 seconds goal not yet met LTG Duration 12 weeks 3 Impairment pelvic floor weakness with MMT of 2/5 for all lopez of the levator ani Short Term Goal (STG) Elida is able to improve pelvic floor strength by one muscle grade to 3/5 good progress STG Duration 6 weeks [facility] [employer] [facility] Goal (LTG) Elida is able to improve pelvic floor strength to 4/5 or better and is able to relax her pelvic floor at rest on EMG biofeedback goal not yet met LTG Duration 12 weeks 2 Impairment tightness across the suprapubic fascia, transverse colon, and oblique musculature making diaphragmatic breathing difficult Short Term Goal (STG) pt is educated in proper breathing technique to expand her rib cage and abdominal wall with a inhale while relaxing the pelvic floor GOAL MET STG Duration 3 weeks [facility] Goal (LTG) Decreased tension and tightness of the abdominal wall and suprapubic fascia and Elida is able to tighten her pelvic floor without upper abdominal wall substitution good progress LTG Duration 8 weeks 1 Impairment pt has history of pelvic pain and UTI's as well as urinary retention Short Term Goal (STG) pt is educated on relaxed awareness of the abdominal wall and voiding techniques to help improve her ability to fully empty her bladder Goal met STG Duration 4 weeks [facility] [employer] [facility] Goal (LTG) pt presents with improve ability to fully empty the bladder, decreased urgency and c/o UTI symptoms excellent progress LTG Duration 12 weeks Assessment Summary Assessment As of last visit December 12 we started working on Elida's serratus anterior today on the left side as well as scar tissue work where her chest tube was placed. She presents with limited rib cage mobilty and she notes that with her autism as a child she often held herself very tight in a forward position. We worked on starting with some exercises to help thoracic mobility. Her digestion is improving and she is not experiencing the pelvic floor issues she was having. At this point she has not returned to PT so will be DC
== END 2023-02-28 12:15 | disposition home or self-care (01) ==
LOC: PHYS 10:30
PROVIDERS: Family Provider Nurse Practitioner Family; PCP Family Medicine; Referring Provider Family Medicine; Visit Provider Family Medicine
DX: R10.2 Pelvic and perineal pain (principal); K21.9 Gastro-esophageal reflux disease without esophagitis; N81.84 Pelvic muscle wasting
CPT/HCPCS: 97110; 97112; 97140; 97161; 97535

== ENCOUNTER → 2023-05-09 17:52 | Outpatient (CLI) | payer SELFPAY | PROVIDERS: Family Provider Nurse Practitioner Family; PCP Family Medicine; Visit Provider Nurse Practitioner Family | DX: R30.0 Dysuria (principal) | CPT/HCPCS: 87077; 87086; 87147; 87210 ==

== ENCOUNTER → 2023-05-20 12:31 | Outpatient (CLI) | payer SELFPAY | PROVIDERS: Family Provider Nurse Practitioner Family; PCP Family Medicine; Visit Provider Nurse Practitioner Family | DX: R10.9 Unspecified abdominal pain (principal) | CPT/HCPCS: 87086 ==

== ENCOUNTER → 2023-11-07 08:40 | Outpatient (CLI) | payer OTHER, SELFPAY ==
--- NOTE | 2023-11-07 08:42 | DI.US.S_ITS ---
PROCEDURE: US PELVIC COMPLETE INDICATIONS: hx of endometriosis, pelvic discomfort TECHNIQUE: Real-time scanning was performed of the pelvic organs, with image documentation. Additional endovaginal scanning was necessary due to incomplete visualization of the adnexal and endometrial structures by transabdominal scanning. COMPARISON: None. FINDINGS: Uterus: Uterus is anteverted and normal in size at 9.5 x 5.1 x 4.1 cm. The myometrium is homogeneous. The endometrium measures 11 mm combined thickness. Intrauterine device in appropriate position. Ovaries: The right ovary measures 4.1 x 2.7 x 2.2 cm, with a calculated ovarian volume of 12.7 cc. The left ovary measures 4.3 x 3.1 x 2.3 cm, with a calculated ovarian volume of 16.0 cc. Complex left ovarian cyst measures 2.2 x 1.8 x 2.1 cm, probable hemorrhagic cyst. The ovaries have a normal sonographic appearance. Less than 12 follicles can be seen in each ovary. No adnexal masses are seen. Other: No pathologic free abdominal or pelvic fluid. IMPRESSION: Intrauterine device in appropriate position. Complex left ovarian cyst 2.2 cm, probable hemorrhagic cyst Approved by: Jamal Dorsey M.D. on 11/07/2023 at 17:16
== END ==
PROVIDERS: Family Provider Nurse Practitioner Family; PCP Family Medicine; Referring Provider Obstetrics & Gynecology; Visit Provider Obstetrics & Gynecology
DX: N92.6 Irregular menstruation, unspecified (principal); N92.0 Excessive and frequent menstruation with regular cycle; N83.292 Other ovarian cyst, left side; R10.2 Pelvic and perineal pain; Z97.5 Presence of (intrauterine) contraceptive device
CPT/HCPCS: 76830; 76856

== ENCOUNTER → 2024-01-03 10:56 | Outpatient (CLI) | payer OTHER, SELFPAY ==
[2024-01-03 13:44] LABS: Prolactin 17.6 ng/mL (3.0-18.6)
[2024-01-03 13:49] LABS: TSH w/ Reflex to FT4 0.71 uIU/mL (0.47-4.68)
[2024-01-03 14:00] LABS: Testosterone 33.6 ng/dL (5.71-77.0)
== END ==
LOC: LAB 10:57
PROVIDERS: Family Provider Nurse Practitioner Family; PCP Family Medicine; Referring Provider Student in an Organized Health Care Education/Training Program; Visit Provider Student in an Organized Health Care Education/Training Program
DX: N92.6 Irregular menstruation, unspecified (principal)
CPT/HCPCS: 36415; 83036; 84146; 84403; 84443

== ENCOUNTER → 2024-07-05 17:24 | Outpatient (CLI) | payer OTHER, SELFPAY | PROVIDERS: Family Provider Nurse Practitioner Family; PCP Family Medicine; Visit Provider Physician Assistant Surgical | DX: N89.8 Other specified noninflammatory disorders of vagina (principal); R30.0 Dysuria | CPT/HCPCS: 87086; 87210 ==

== ENCOUNTER → 2025-02-05 10:15 | Outpatient (CLI) | payer OTHER, SELFPAY | PROVIDERS: Family Provider Nurse Practitioner Family; PCP Family Medicine; Visit Provider Physician Assistant | DX: R30.0 Dysuria (principal) | CPT/HCPCS: 87086 ==

== ENCOUNTER → 2025-02-05 12:02 | Outpatient (CLI) | payer OTHER, SELFPAY ==
[2025-02-05 13:06] LABS: Add Manual Diff / Slide Review NO; Hematocrit 41.0 % (36-46); Hemoglobin 14.0 g/dL (12.0-16.0); Lymphocytes Absolute Auto 1200 /uL (1100-4500); Mean Corpuscular HGB Conc 34.1 % (30-36); Mean Corpuscular Hemoglobin 30.8 PG (26-34); Mean Corpuscular Volume 90.3 fL (80-100); Platelet Count 195 X10^3/uL (150-400)
[2025-02-05 13:25] LABS: Alanine Aminotransferase 26 IU/L (<35); Albumin 4.2 g/dL (3.5-5.0); Albumin Globulin Ratio 1.6 (1.0-2.8); Alkaline Phosphatase 81 U/L (38-126); Blood Urea Nitrogen 7 mg/dL (7-17); Calcium 9.1 mg/dL (8.4-10.2); Carbon Dioxide 25 mmol/L (22-32); Chloride 104 mmol/L (98-107); Estimated Glomerular Filt Rate > 60 mL/min (>60); Globulin 2.7 g/dL (1.7-4.1); Glucose 94 mg/dL (70-99); HEMOLYSIS < 15 (0-50); Potassium 4.2 mmol/L (3.4-5.1); Sodium 137 mmol/L (137-145); Total Protein 6.9 g/dL (6.3-8.2)
[2025-02-05 15:19] LABS: Follicle Stimulating Hormone 3.51 mIU/mL
== END ==
PROVIDERS: Family Provider Nurse Practitioner Family; PCP Family Medicine; Referring Provider Physician Assistant; Visit Provider Physician Assistant
DX: R11.10 Vomiting, unspecified (principal); R19.7 Diarrhea, unspecified; N83.209 Unspecified ovarian cyst, unspecified side; F32.81 Premenstrual dysphoric disorder
CPT/HCPCS: 36415; 80053; 83001; 85025; 87086

== ENCOUNTER → 2025-02-10 10:26 | Outpatient (CLI) | payer OTHER, SELFPAY | PROVIDERS: Family Provider Nurse Practitioner Family; PCP Family Medicine; Visit Provider Physician Assistant | DX: R35.0 Frequency of micturition (principal); N89.8 Other specified noninflammatory disorders of vagina | CPT/HCPCS: 87086; 87210 ==

== ENCOUNTER → 2025-02-18 12:11 | Outpatient (CLI) | payer OTHER, SELFPAY ==
--- NOTE | 2025-02-18 12:12 | DI.US.S_ITS ---
PROCEDURE: US PELVIC COMPLETE INDICATIONS: chronic pelvic pain, hx cyst TECHNIQUE: Real-time scanning was performed of the pelvic organs, with image documentation. Additional endovaginal scanning was necessary due to incomplete visualization of the adnexal and endometrial structures by transabdominal scanning. COMPARISON: [facility], , US PELVIC COMPLETE, 11/07/2023, 8:55. FINDINGS: Uterus: Uterus is anteverted and normal in size at 9.6 x 3.2 x 4.5 cm. The myometrium is homogeneous. The endometrium measures 6 mm combined thickness. The IUD is seen at its expected location. Ovaries: The right ovary measures 3.4 x 1.5 x 2.1 cm, with a calculated ovarian volume of 2.6 cc. The left ovary measures 3.7 x 2.8 x 3.7 cm, with a calculated ovarian volume of 9.7 cc. The left ovary demonstrates simple appearing cystic follicles that measure up to 2 cm. Less than 12 follicles can be seen in each ovary. No adnexal masses are seen. Normal appearing arterial waveforms are confirmed to each ovary. Other: A mild amount of free pelvic fluid is seen, which is considered to be within physiologic limits. IMPRESSION: No imaging explanation is found for this patient's presenting symptoms. No suspicious ovarian cysts are now seen. The IUD is seen at its expected location. We strive to produce accurate, complete, and clear reports of imaging services. To assist us in improving patient care, this report was composed using standard report templates and voice recognition software. Therefore, it may contain abnormal punctuation, insertions and/or omissions. Occasional wrong-word or sound-alike substitutions may occur. Though we review the report and make efforts to correct it, we do recommend that the report be read carefully in proper context to recognize any text inaccuracies. Dictated by: Stanley Hernandez M.D. on 02/18/2025 at 12:26 Approved by: Stanley Hernandez M.D. on 02/18/2025 at 12:28
== END ==
PROVIDERS: Family Provider Nurse Practitioner Family; PCP Family Medicine; Referring Provider Physician Assistant; Visit Provider Physician Assistant
DX: N83.209 Unspecified ovarian cyst, unspecified side (principal)
CPT/HCPCS: 76830; 76856